=== PATIENT | male | born 1970 | race Caucasian/White ===

== ENCOUNTER 2022-09-07 01:43 | Inpatient (IN) | payer BC, SELFPAY ==
[2022-09-07] VITALS (17 sets, daily range): BP systolic 116–163; BP diastolic 81–105; PULSE 70–89; RESP 16–20; TEMP 36.4–36.8; O2SAT 93–100; BMI 181.2; BMI 27.7
--- NOTE | 2022-09-07 01:52 | XR_ITS ---
PROCEDURE INFORMATION: Exam: XR Chest Exam date and time: 09/07/2022 2:17 AM Age: 52 years old Clinical indication: Pain; Chest pressure; Additional info: Chest pain TECHNIQUE: Imaging protocol: Radiologic exam of the chest. Views: 1 view. COMPARISON: No relevant prior studies available. FINDINGS: Lungs: No consolidation, mass, or pulmonary edema. Pleural spaces: Unremarkable. No pleural effusion. No pneumothorax. Heart/Mediastinum: Unremarkable. No cardiomegaly. Bones/joints: No acute osseous abnormality. IMPRESSION: No acute findings.
--- NOTE | 2022-09-07 01:54 | PC.NURSE ---
Pt arrived to floor via stretcher @ this time
[2022-09-07 02:13] LABS: Coronavirus 19, PCR Not Detected (NotDetected); Influenza A, PCR Not Detected (NotDetected); Influenza B, PCR Not Detected (NotDetected)
--- NOTE | 2022-09-07 02:13 | EXP.HP ---
History of Present Illness *Admission Date: 09/07/22 *Reason for visit:: Chest Pain *History of present illness: Mr. Henning is a 52-year-old male with a past medical history of HTN, Hyperlipidemia, Chronic Tobacco and Chronic Alcohol use. He presents to [facility] as a transfer from [facility] for an Acute Epsiode of Anterior Chest wall pain that occurred approximately 1 hour before arrival to the outside hospital. He reports that the pain was located in the anterior chest wall with radiation up to the shoulders, he reports that the pain was associated with shortness of air, flushed sensation, dizziness and nausea. He reports that he went into the ER for evaluation. In the ER at the [facility], EKG showed Sinus Tachycardia with no ST elevation or significant depression with rate of 135. High Sensitivity Troponin was elevated at 102.0. Blood pressure was elevated at 171/87. Cxray showed no acute cardiopulmonary findings. D-dimer was elevated at 550, CTA of the chest showed no evidence of PE or Dissection. CBC was unremarkable. CMP showed a low K at 2.7. In the ER at the [facility], the patient received ASA, Plavix, Lipitor, Beta Araseli, and KCL at 40 meq. The patient was admitted with initial impression: NSTEMI [facility] Disclaimer: The information contained in this section may have been updated after the patient was seen, as this information can be updated by other users. Medical History (Updated 09/07/22 @ 02:22 by Deonte Soto DNP) Chronic alcohol abuse Hyperlipidemia Hypertension Tobacco abuse Social History (Updated 09/07/22 @ 02:21 by Mike Guzman RN) Smoking Status: Current every day smoker alcohol intake: current current occupational status: employed Travel in the last 8 weeks: None Review of Systems Review of Systems Review of systems:: pertinent systems reviewed and negative unless documented below Constitutional Constitutional: Reports system reviewed and no additional complaints, except as documented Eyes Eyes: Reports system reviewed and no additional complaints, except as documented ENT Ears, Nose, Mouth, and Throat: Reports system reviewed and no additional complaints, except as documented and Reports vertigo *Cardiovascular Cardiovascular: Reports chest pain, Reports diaphoresis and Reports dyspnea *Respiratory Respiratory: Reports system reviewed and no additional complaints, except as documented and Reports dyspnea *Gastrointestinal Gastrointestinal: Reports system reviewed and no additional complaints, except as documented *Genitourinary Genitourinary: Reports system reviewed and no additional complaints, except as documented Integumentary/Breasts Skin/Breast: Reports system reviewed and no additional complaints, except as documented *Neurologic Neurologic: Reports vertigo Psychiatric Psychiatric: Reports system reviewed and no additional complaints, except as documented Endocrine Endocrine: Reports system reviewed and no additional complaints, except as documented Hematologic/Lymphatic Hematologic/Lymphatic: Reports system reviewed and no additional complaints, except as documented Allergic/Immunologic Allergic/Immunologic: Reports system reviewed and no additional complaints, except as documented Meds Home Medications and Allergies Home Medications Medication Instructions Recorded Confirmed Type ibuprofen 200 mg tablet 400 mg PO AM Pain 09/07/22 09/07/22 History lansoprazole 30 mg capsule,delayed 30 mg PO AM Acid reflux 09/07/22 09/07/22 History release (Prevacid) losartan 25 mg tablet 25 mg PO AM High blood pressure 09/07/22 09/07/22 History New Prescriptions to Start Prescriptions: Allergies Allergy/AdvReac Type Severity Reaction Status Date / Time No Known Drug Allergies Allergy Verified 09/07/22 02:09 Exam Data for Last 24 hours Vital signs and Labs for Last 24 Hours: Temp Pulse Resp BP Pulse Ox 98.2 F
--- NOTE | 2022-09-07 02:30 | ECG_ITS ---
APPROVED REPORT Exam: Resting ECG HR:78 bpm ECG Measurements Heart Rate 78 AXES [place] 124 P 36 QRSd 88 QRS 17 QT 378 T 41 QTc 411 Conclusion SINUS RHYTHM NORMAL ECG UNCONFIRMED REPORT Electronically signed by : Greg Mckee MD 09/07/2022 20:34:21
[2022-09-07 02:32] LABS: Basophils # 0.1 K/mm3 (0-0.2); Basophils % 0.7 % (0.1-2.0); Eosinophils # 0.3 K/mm3 (0.0-0.4); Eosinophils % 2.7 % (0.1-12.0); Hematocrit 41.4 % (42.0-52.0); Hemoglobin 12.7 g/dL (14.1-18.0); Lymphocytes # 3.5 K/mm3 (0.7-4.5); Lymphocytes % 37.4 % (10-50); Mean Corpuscular HGB Conc 30.7 g/dL (31.8-35.4); Mean Corpuscular Hemoglobin 28.4 pg (27.0-31.2); Mean Corpuscular Volume 92.4 fl (80-94); Mean Platelet Volume 8.2 fl (7.4-10.4); Monocytes # 0.9 K/mm3 (0.1-1.0); Monocytes % 9.5 % (1.7-9.3); Neutrophils # 4.6 K/mm3 (1.8-7.8); Neutrophils % 49.8 % (37.0-80.0); Platelet Count 268 K/mm3 (142-424); Red Blood Count 4.48 M/mm3 (4.60-6.20); Red Cell Distribution Width 16.4 % (11.5-17.5); White Blood Count 9.3 K/mm3 (4.8-10.8)
[2022-09-07 02:44] LABS: Alanine Aminotransferase 50 U/L (12-78); Alkaline Phosphatase 150 U/L (38-126); Anion Gap 13.3 mEq/L (5-15); Aspartate Amino Transferase 89 U/L (17-59); Bilirubin,Total 0.4 mg/dl (0.2-1.3); Blood Urea Nitrogen 5 mg/dl (9-20); Calcium 8.2 mg/dl (8.4-10.2); Carbon Dioxide 18 mmol/L (22.0-30.0); Chloride 111 mmol/L (98-107); Creatinine Clearance Estimated 107 mL/min (50-200); Estimated Glomerular Filt Rate 89 ml/min (>60); GFR (African American) 108 ML/MIN (>60); Globulin 3.9 g/dL (1.3-3.2); Glucose 120 mg/dl (74-100); Potassium 3.3 mmoL/L (3.5-5.1); Sodium 139 mmol/L (136-145); Total Protein,Serum 7.9 g/dl (6.3-8.2)
[2022-09-07 02:57] LABS: NT Pro Brain Natriuretic Pep. 51.7 pg/mL (0-125)
[2022-09-07 02:58] LABS: Troponin I 0.87 ng/ml (0.00-0.034)
--- NOTE | 2022-09-07 06:52 | PC.NURSE ---
Edgar admitted from [facility] where he presented to the ED with tachypnea, tachycardia and chest pain. Patient arrived via ambulance at approximately 0145. Supplemental oxygen on via nasal cannula, state he does not use a home. Troponins elevated, patient was transferred to [facility] for further cardiology workup and potential cardiac cath. Cardiac monitoring continues. PIV R forearm patent. Patient denies pain. Oriented to call light and unit policies.
[2022-09-07 07:10] LABS: Chol/HDL Ratio 10.1 (1-3.5); Cholesterol 222 mg/dl (140-200); HDL Cholesterol 22 mg/dl (40-60)
[2022-09-07 07:18] LABS: Triglycerides 584 mg/dl (30-150)
--- NOTE | 2022-09-07 07:19 | HMH.PHAINT1 ---
Pharmacy Intervention Comments: Reconciled patient's home medications using pharmacy fill history and patient interview.
[2022-09-07 07:21] LABS: Direct LDL Cholesterol 105.05 mg/dL (100-129)
[2022-09-07 07:30] LABS: Troponin I 1.61 ng/ml (0.00-0.034)
[2022-09-07 08:38] LABS: Troponin I 1.67 ng/ml (0.00-0.034)
--- NOTE | 2022-09-07 09:20 | EXP.CARD.CON ---
History of Present Illness History of Present Illness Consult date: 09/07/22 Requesting physician: Krish Huang Consult reason: chest pain Chief complaint: chest pain, elevated trop History of present illness: 52-year-old white male with past medical history of hypertension, hyperlipidemia, chronic tobacco use and chronic alcohol abuse presented to [facility] as a transfer from [facility] for NSTEMI. Patient reports last night was about to go to bed when developed midsternal chest pressure radiating into bilateral shoulders associated with shortness of air, dizziness and nausea. Patient reports has had similar episodes over the past month becoming more frequent in nature. Last night's episode was the worst. Upon presentation to emergency department EKG was negative for acute ischemic changes but did show sinus tachycardia with a rate of 135. Initial high-sensitivity troponin was elevated at 102. Blood pressure was noted to be 171/87. Patient had an elevated D-dimer of 550, CTA of chest was negative for PE or dissection. Patient was transferred to [facility] for cardiology evaluation. Troponin at this facility was noted to be 0.87-1.67. Currently is normal sinus rhythm with a rate of 78. Preliminary echo shows an estimated EF of 50 to 55%. Patient reports ongoing mild chest pressure. [facility] Disclaimer: The information contained in this section may have been updated after the patient was seen, as this information can be updated by other users. Medical History (Updated 09/07/22 @ 02:22 by Deonte Soto DNP) Chronic alcohol abuse Hyperlipidemia Hypertension Tobacco abuse Social History (Updated 09/07/22 @ 02:21 by Mike Guzman RN) Smoking Status: Current every day smoker alcohol intake: current current occupational status: employed Travel in the last 8 weeks: None Review of Systems Review of Systems Review of systems:: pertinent systems reviewed and negative unless documented below ENT Ears, Nose, Mouth, and Throat: Reports vertigo *Cardiovascular Cardiovascular: Reports chest pain and Reports dyspnea on exertion *Respiratory Respiratory: Reports dyspnea on exertion *Neurologic Neurologic: Reports vertigo Exam Data for Last 24 hours Vital signs and Labs for Last 24 Hours: Temp Pulse Resp BP Pulse Ox 98.1 F 78 20 143/81 H 99 09/07/22 08:00 09/07/22 08:00 09/07/22 08:00 09/07/22 08:00 09/07/22 08:00 Laboratory Results - last 24 hr 09/07/22 02:00: SARS-CoV-2 (PCR) Not detected, Influenza A Untype (PCR) Not detected, Influenza Type B (PCR) Not detected 09/07/22 02:20: WBC 9.3, RBC 4.48 L, Hgb 12.7 L, Hct 41.4 L, MCV 92.4, MCH 28.4, MCHC 30.7 L, RDW 16.4, Plt Count 268, MPV 8.2, Neut % (Auto) 49.8, Lymph % (Auto) 37.4, [place] % (Auto) 9.5 H, Eos % (Auto) 2.7, Baso % (Auto) 0.7, Neut # (Auto) 4.6, Lymph # (Auto) 3.5, [place] # (Auto) 0.9, Eos # (Auto) 0.3, Baso # (Auto) 0.1 09/07/22 02:20: Sodium 139, Potassium 3.3 L, Chloride 111 H, Carbon Dioxide 18 L, Anion Gap 13.3, BUN 5 L, Creatinine 0.90, Estimated Creat Clear 107, Estimated GFR 89, Est GFR ( Amer) 108, Glucose 120 H, Calcium 8.2 L, Total Bilirubin 0.4, AST 89 H, ALT 50, Alkaline Phosphatase 150 H, Troponin I 0.87 H, Total Protein 7.9, Albumin 4.0, Globulin 3.9 H, Albumin/Globulin Ratio 1.0 L 09/07/22 02:20: NT-Pro-B Natriuret Pep 51.7 09/07/22 05:28: Troponin I 1.61 H 09/07/22 05:28: Triglycerides 584 H, Cholesterol 222 H, LDL Cholesterol Direct 105.05, HDL Cholesterol 22 L, Cholesterol/HDL Ratio 10.1 H 09/07/22 08:00: Troponin I 1.67 H I & O for Last 24 hours: Intake & Output 09/04/22 09/05/22 09/06/22 09/07/22 23:59 23:59 23:59 23:59 Output Total 400 / 400 Balance -400 / -400 Weight 171 lb 11.2 oz Constitutional Constitutional: no acute distress *Routine Respiratory Exam Respiratory: Present CTA bilaterally and symmetric chest movement *Routine Cardiovascular Exam Car
--- NOTE | 2022-09-07 09:42 | IR_ITS ---
APPROVED REPORT Patient Location: Inpatient Pan Puller: WILMAN Penn RT (R) PROCEDURES 1. Left heart catheterization 2. Selective coronary arteriography 3. Left ventriculography 4. PTCA/stent of the ramus intermedius INDICATION 1. Non-Q wave myocardial infarction, 2. Abnormal EKG SCAI INDICATION Patient a 52-year-old white male who presented with chest pain. Progressive pressure and tightness in his chest. Located in the sternal region. Abnormal EKG. Non-Q wave myocardial infarction with leak enzymes. Secondary to this referred for left heart catheterization Informed consent was obtained prior to the procedure. COMPLICATIONS None Estimated Blood Loss: Less than 10mls TECHNIQUE One percent lidocaine used to anesthetize the right anterior aspect of the wrist. The right radial artery was accessed via the Seldinger technique. A 6 Danish sheath was placed in the right radial artery. 150 mg magnesium sulfate, 800 mcg of nitroglycerin, 1mg Lidocaine and 5000 U Heparin were given through the arterial sheath. The papa catheter was also used to perform left heart catheterization, left ventriculogram and selective coronary angiogram. At the end of the procedure the sheath was removed good hemostasis was achieved using Traclet band, patient was transferred to the postop holding area in stable condition. ANGIOGRAPHIC RESULTS The left main artery Angiographically normal The left anterior descending artery Had smooth 20% mid stenosis. Normal flow into the distal vessel The circumflex artery Large in size and angiographically normal. Patient had a ramus intermedius which had an 85% proximal stenosis. Normal flow into the distal vessel The right coronary artery Moderate in size and codominant with the circumflex. Smooth 20% proximal stenosis The WATSON ventriculogram reveals Normal left ventricular systolic function with an ejection fraction of 65 to 70%. No wall motion abnormalities. No gradient on pullback of the catheter. No noted mitral insufficiency The left ventricular end-diastolic pressure 14 Radial approach was used. I used the same diagnostic catheter to intervene. 5000 heparin was initially given then an additional 2000 of heparin was given. ACT appropriate for the procedure. Crossed with a Choice PT wire. Primary stenting was done in the proximal ramus intermedius with a 2.75 x 15 mm Pelican frontier drug-eluting stent. Resulted in 0% residual stenosis. Pre and post TEE flow 3 IMPRESSION 1. Severe stenosis noted in the large proximal ramus intermedius 2. Mild diffuse disease in the other coronary vessels 3. Normal left ventricular systolic function 4. Normal left ventricular end-diastolic pressure 5. Successful angioplasty and stenting of the proximal ramus intermedius with an Bridger frontier drug-eluting stent resulting in 0% residual stenosis 6. Successful placement of a radial band on the right radial artery PLAN 1. Patient will get Brilinta 180 mg x 1 now than 90 mg twice daily. Aspirin daily. Aggressive risk factor modification. Follow-up in cardiology clinic in 1 to 2 weeks for further evaluation and treatment Electronically signed by : David Shine MD 09/07/2022 14:29:41
[2022-09-07 14:40] LABS: CATHL Activated Clotting Time > 400 SEC (74-125)
--- NOTE | 2022-09-07 14:40 | PC.NURSE ---
brett carrington in cathodic protection technician currently. had no complaints this shift. stated angina was only slight at times. did get up and sit in chair. independent in room. educated on all meds and plan of care. encouraged to ring out as needed. tolerates room air well.
--- NOTE | 2022-09-07 15:10 | PC.NURSE ---
TOOK OVER CARE FOR PT AT THIS TIME. BACK FROM HALL DIRECTOR, NO NEEDS OR C/O NOTED THUS FAR. R RADIAL SITE, CDI. FAMILY AT BEDSIDE. PT RESTING NOW. VSS.
--- NOTE | 2022-09-07 16:18 | EXP.DC.SUM ---
General Admission date:: 09/07/22 Discharge date: 09/07/22 HPI HPI HPI: Mr. Henning is a 52-year-old male with a past medical history of HTN, Hyperlipidemia, Chronic Tobacco and Chronic Alcohol use. He presents to [facility] as a transfer from [facility] for an Acute Epsiode of Anterior Chest wall pain that occurred approximately 1 hour before arrival to the outside hospital. He reports that the pain was located in the anterior chest wall with radiation up to the shoulders, he reports that the pain was associated with shortness of air, flushed sensation, dizziness and nausea. He reports that he went into the ER for evaluation. In the ER at the [facility], EKG showed Sinus Tachycardia with no ST elevation or significant depression with rate of 135. High Sensitivity Troponin was elevated at 102.0. Blood pressure was elevated at 171/87. Cxray showed no acute cardiopulmonary findings. D-dimer was elevated at 550, CTA of the chest showed no evidence of PE or Dissection. CBC was unremarkable. CMP showed a low K at 2.7. In the ER at the [facility], the patient received ASA, Plavix, Lipitor, Beta Araseli, and KCL at 40 meq. The patient was admitted with initial impression: NSTEMI Hospital Course Hospital Course Hospital Course: 52-year-old male presented with NSTEMI. Cardiology consulted. Taken to the [facility]. Problems addressed as follows: NSTEMI CCS 3 Hypertension Hyperlipidemia Admitted as transfer from outside facility. Troponin elevated on admission of 0.87, increased to 1.67. EKGs reviewed, no ST elevations. Cardiology was consulted. Taken to the [facility] for intervention. Patient noted to have severe stenosis of the large proximal ramus intermedius. Also noted to have mild diffuse disease in the other coronary vessels. Successful stenting of the proximal ramus with 0% residual stenosis. Plan to continue dual antiplatelet therapy at discharge with aspirin and Brilinta. Increase irbesartan to 75 mg daily. Initiate carvedilol 3.125 mg twice daily for goal-directed management. Initiate Lipitor high intensity 80 mg daily given LDL of 105 and coronary artery disease. EKG obtained showing preliminary EF 50 to 55%. Formal read still pending at discharge. Plan for close follow-up with cardiology in the coming weeks. Discussed risk modification. Patient would benefit from smoking cessation. Cath findings as follows: IMPRESSION 1.? Severe stenosis noted in the large proximal ramus intermedius 2.? Mild diffuse disease in the other coronary vessels 3.? Normal left ventricular systolic function 4.? Normal left ventricular end-diastolic pressure 5.? Successful angioplasty and stenting of the proximal ramus intermedius with an Bridger frontier drug-eluting stent resulting in 0% residual stenosis 6.? Successful placement of a radial band on the right radial artery Stable for discharge home. Close follow-up with cardiology Exam Data for Last 24 hours Vital signs and Labs for Last 24 Hours: Temp Pulse Resp BP Pulse Ox 98.2 F 89 16 147/98 H 93 L 09/07/22 12:00 09/07/22 14:45 09/07/22 14:45 09/07/22 14:45 09/07/22 14:45 Laboratory Results - last 24 hr 09/07/22 02:00: SARS-CoV-2 (PCR) Not detected, Influenza A Untype (PCR) Not detected, Influenza Type B (PCR) Not detected 09/07/22 02:20: WBC 9.3, RBC 4.48 L, Hgb 12.7 L, Hct 41.4 L, MCV 92.4, MCH 28.4, MCHC 30.7 L, RDW 16.4, Plt Count 268, MPV 8.2, Neut % (Auto) 49.8, Lymph % (Auto) 37.4, [place] % (Auto) 9.5 H, Eos % (Auto) 2.7, Baso % (Auto) 0.7, Neut # (Auto) 4.6, Lymph # (Auto) 3.5, [place] # (Auto) 0.9, Eos # (Auto) 0.3, Baso # (Auto) 0.1 09/07/22 02:20: Sodium 139, Potassium 3.3 L, Chloride 111 H, Carbon Dioxide 18 L, Anion Gap 13.3, BUN 5 L, Creatinine 0.90, Estimated Creat Clear 107, Estimated GFR 89, Est GFR ( Amer) 108, Glucose 120 H, Calcium 8.2 L, Total Bilirubin 0.4, AST 89 H, ALT 50, Alkaline Phosphatase 150 H, Troponi
--- NOTE | 2022-09-07 16:32 | P.CONPHA_ITS ---
PHA Associate Professor Of Surgery Discharge Med Medical Assisting Instructor: Robert Henning has received discharge medication counseling on the following medications: ASPIRIN 81 MG DAILY ATORVASTATIN 80 MG HS BRILINTA 90 MG BID CARVEDILOL 3.125 MG BID IRBESARTAN 75 MG DAILY
--- NOTE | 2022-09-07 16:35 | HMH.PHAINT1 ---
Pharmacy Intervention Comments: Counseled patient and spouse on 5 new medications to START (Aspirin, atorvastatin, carvedilol, irbesartan, ticagrelor) and 2 medications to STOP (losartan, ibuprofen). Patient and spouse expressed understanding of medications' indication, dose, route, frequency, and potential side effects.
--- NOTE | 2022-09-07 18:14 | PC.NURSE ---
ARM BAND REMOVED, NO BLEEDING NOTED, DRESSING APPLIED. PT WILL D/C AT 1830.
--- NOTE | 2022-09-09 15:37 | CARE MANAGER ---
Attempted to contact patient x2 related to hospital discharge. No VM option. ANICETO Mayes
== END 2022-09-07 18:41 | disposition home or self-care (01) | DRG 247 ==
PROVIDERS: Internal Medicine Cardiovascular Disease; Nurse Practitioner Family; Admitting Provider Student in an Organized Health Care Education/Training Program; PCP Nurse Practitioner Family; Visit Provider Student in an Organized Health Care Education/Training Program
PROC: 027034Z Dilation of Coronary Artery, One Artery with Drug-eluting Intraluminal Device, Percutaneous Approach (ICD-10-PCS; principal; 2022-09-07 09:30)
DX: I21.4 Non-ST elevation (NSTEMI) myocardial infarction (principal); I10 Essential (primary) hypertension; E78.5 Hyperlipidemia, unspecified; F17.200 Nicotine dependence, unspecified, uncomplicated; F10.10 Alcohol abuse, uncomplicated; I25.10 Atherosclerotic heart disease of native coronary artery without angina pectoris
CPT/HCPCS: C9600; 36415; 71045; 80053; 80061; 83880; 84484; 85025; 85347; 92928; 93005; 93306; 93458; 99152; C1725; C1769; C1876; C9803; J1644; Q9967; U0003; U0005